=== PATIENT | female | born 2000 | race Caucasian/White ===

== ENCOUNTER → 2020-05-15 | Outpatient (CLI) | payer OTHER ==
--- NOTE | 2020-05-15 10:09 | US ---
EXAMINATION TYPE: US abdomen complete DATE OF EXAM: 05/15/2020 COMPARISON: NONE CLINICAL HISTORY: R10.10 Upper abdominal pain, unspecified. EXAM MEASUREMENTS: Liver Length: 13.9 cm Gallbladder Wall: 0.1 cm CBD: 0.3 cm Spleen: 10.7 cm Right Kidney: 10.3 x 3.2 x 4.1 cm Left Kidney: 10.4 x 4.6 x 4.1 cm Pancreas: Obscured by bowel gas, visualized portions obscured by bowel gas Liver: wnl Gallbladder: wnl Evidence for sonographic Covarrubias's sign: No CBD: wnl Spleen: wnl Right Kidney: No hydronephrosis or masses seen Left Kidney: No hydronephrosis or masses seen Upper IVC: wnl Abd Aorta: wnl The liver is homogenous. The intrahepatic portion of the IVC and proximal abdominal aorta are within normal limits. There is no evidence of cholelithiasis. Common bile duct is unremarkable. The visu alized portions of the pancreas are homogenous. The spleen is unremarkable. Kidneys are symmetric a nd free of hydronephrosis. No renal lesions are seen. IMPRESSION: No distinct abnormality is appreciated.
== END | disposition home or self-care (01) ==
LOC: RADUSWWP 09:29
PROVIDERS: ATTEND Family Medicine
DX: R10.10 Upper abdominal pain, unspecified (principal)
CPT/HCPCS: 76700

== ENCOUNTER → 2022-01-28 | Outpatient (CLI) | payer OTHER ==
--- NOTE | 2022-01-29 09:24 | US ---
EXAMINATION TYPE: US abdomen complete DATE OF EXAM: 01/28/2022 COMPARISON: NONE CLINICAL HISTORY: R10.32 LLQ ABD PAIN. Left side pain that radiates to right back. EXAM MEASUREMENTS: Liver Length: 14.6 cm Gallbladder Wall: 0.1 cm CBD: 0.2 cm Spleen: 11.0 cm Right Kidney: 9.8 x 4.6 x 3.2 cm Left Kidney: 10.2 x 4.4 x 4.1 cm Pancreas: wnl Liver: wnl Gallbladder: wnl Evidence for sonographic Covarrubias's sign: neg CBD: wnl Spleen: wnl Right Kidney: Medial anechoic lesion lesion at hilum = 0.8 x 0.3 cm Left Kidney: wnl Upper IVC: wnl Abd Aorta: wnl The liver is homogenous. The intrahepatic portion of the IVC and proximal abdominal aorta are within normal limits. There is no evidence of cholelithiasis. Common bile duct is unremarkable. The visu alized portions of the pancreas are homogenous. The spleen is unremarkable. Kidneys are symmetric a nd free of hydronephrosis. No solid renal lesions are seen. IMPRESSION: Small right renal parapelvic cyst.
== END | disposition home or self-care (01) ==
LOC: RADUSWWP 08:59
PROVIDERS: ATTEND Family Medicine
DX: N28.1 Cyst of kidney, acquired (principal)
CPT/HCPCS: 76700